=== PATIENT | female | born 1975 | race Caucasian/White ===

== ENCOUNTER 2019-09-21 17:54 | Emergency (ER) | payer MEDICAID ==
[~2019-09-21] VITALS: Ht 182.9 cm; Wt 115.7 kg
[2019-09-21 18:07] VITALS: Ht 182.9 cm; Wt 115.7 kg
[2019-09-21 20:30] VITALS: BP 135/91
== END 2019-09-21 20:30 | disposition home or self-care (01) ==
LOC: ED 17:54
DX: M51.16 Intervertebral disc disorders with radiculopathy, lumbar region (principal)